=== PATIENT | female | born 1960 | race Caucasian/White ===

== ENCOUNTER 2023-09-02 06:19 | Day surgery (SDC) | payer OTHER, SELFPAY ==
[2023-09-02] VITALS (13 sets, daily range): BP systolic 100–135; BP diastolic 48–117; BMI 23.8
[2023-09-02] MEDS: NSS 500 IV (06:54)
--- NOTE | 2023-09-02 09:24 | ITS.CL.ABL ---
[employer] - Ablation
Ablation
Procedure Report:
Supra-Ventricular Tachycardia Ablation:
Ms. Mathis is a very pleasant�63 yr old woman with medical history significant for palpitations and was diagnosed with supra-ventricular tachycardia (SVT) with EKG showed short RP tachycardia. He presented today to the EP lab for electrophysiology
(EP) study of the heart and possible ablation of the SVT.
Date of Procedure:
09/02/2023
�
Indications: Supra-Ventricular Tachycardia (SVT)
�
Pre-Operative Diagnosis: Supra-Ventricular Tachycardia (SVT)
�
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
�
Procedure Performed: EP study and SVT ablation
�
Performing Physician:
Deepika Goldsmith MD
��
Anesthesia:
See anesthesia records
�
Detailed Description of the Procedure:
Written informed consent was obtained from the patient after a full explanation of the risks and benefits of the procedure including the risks of sedation and anesthesia. The patient was brought to the electrophysiology laboratory in stable
condition in fasting state. Continuous electrocardiographic and hemodynamic monitoring was initiated.
The initial rhythm was normal sinus.
The procedure site was meticulously prepared with surgical scrub and allowed to dry with no pooling. Sterile draping was applied to cover the procedure site. The image intensifier was draped with sterile bag and positioned over the patient.
Sheath and Catheter Placement:
After infusion of local anesthetic, vascular access was obtained under ultrasound guidance and sheaths were placed over guide wire as detailed below.
�
Sheaths:
- � � � 6 Fr sheath in right femoral vein
- � � � 6 Fr sheath in right femoral vein
- � � � 7 Fr sheath in right femoral vein �
- � � � 8 Fr that was later upgraded to Agilis sheath in right femoral vein
�
Catheters:
- � � � 6Fr - Jennifer Quad-cath at RVa
- � � � 6Fr � QRD Quad - cath at HIS
- � � � 6Fr - Jennifer Quad-cath at HRA
- � � � Bard Decapolar catheter - at locations of CS
- � � � [employer] Guerra EZ steer non-irrigated 4 mm ablation catheter
�
�Following the sheaths placement, patient was given Heparin bolus and EP study was done.
Baseline intervals (milliseconds):
PP interval (baseline cycle length): 610
P wave duration:126
CO interval:190
QRS duration: 87
QT interval: 430
�
AH interval: 102
His duration: 18
HV interval: 50
Q onset to RVa: 0
��
Sinus Node Function:
HRA pacing showed adequate threshold. The sinus node functions are within acceptable normal range.
�
Atrioventricular Jayant Function:
Atrial stimulation with incremental pacing intervals was performed from the high right atrium (HRA) and right ventricular apex (RVa) and antegrade and retrograde atrioventricular (AV) block cycle lengths were determined. The antegrade AV Wenckebach
was noted at 490 msec.
Programmed stimulation could not be done due to incessant SVT induced with minimal atrial stimulation.
There was transient AV block present at baseline before the start of any stimulation possibly due to HIS lead placement with baseline conduction disease evident with slow AVNRT.
The tachycardia was studied that showed CL of 520 msec and has simultaneous A and V signals.
V pacing and early HIS capture was able to break the tachycardia but was incessant and was going into SVT almost immediately. The decision was made to do full EP study after the ablation.
�
SVT Arrhythmia Induction:
Easily inducible SVT noted.
Tachycardia:
The tachycardia was studies with a cycle length of 520 msec. The tachycardia was concentric and had short VA time. The tachycardia was entrained from the ventricle and the proximal CS. The ventricle was out of the tachycardia cycle and attempt from
the entrainment from CS maneuver terminated the tachycardia. Following observations were noted. �
a)�Simultaneous A and V (Septal VA interval of <70 ms was at 28msec).�
b) Ventricular Overdrive pacing demonstrated a VAHV�response�
c) SA-VA >85 (151 � 20)
d) PPI-TCL >115msec (661-520= 141 msec)
e) HIS synchronous PVC dissociated the RV from the tachycardia
f) HIS synchronous PAC dissociated the RA from the tachycardia
j) The tachycardia was terminated with early PAC or PVC by engaging the AV node showing dependence on the AV node.
�
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
The tachycardia once induced was easily inducible by simply moving the catheter in the annulus area. The RV entrainment again confirmed the diagnosis of AVNRT.
Electroanatomic 3D Mapping (EAM) and Ablation:
Patient was given Heparin bolus. The HRA was removed and was upgraded to Agilis sheath for ablation catheter. EAM and radiofrequency ablation was performed using a non-irrigation, EZ steer 4 mm radiofrequency ablation catheter. 3D mapping was
performed with Carto Version 6 software. Cardiac anatomy as established. His cloud was established. The triangle of Suresh was marked with ablation catheter. There was a narrow area between the anterior border of the CS and the tricuspid annulus.
A slow pathway AVNRT ablation was pursued. Radiofrequency ablation lesions were applied to the anatomic slow pathway area targeting spike and dome electrograms with > 1:7 A:V ratio just below the His cloud. There were multitude of Junctional beats
with 1:1 VA relationship noted. There was no non-conducted beat.
Post Ablation EP study:
Programmed atrial stimulation was performed with drive train of 600 msec followed by a single atrial extra-stimulus and the AV jayant and the atrial ERPs were determined. The AV jayant ERP was 600/480 msec and the atrial ERP was <320msec.
There was normal decremental conduction noted through the AV node. The programmed stimuli showed no sign of AH jump anymore.
The AV jayant functions are deemed within sluggish with elevated AV node ERP indicative again of conduction disease, however, the AV conduction duration was normal with stable AH and HV of 102 and 50msec.
�
Ventricular Function:
Single ventricular extrastimuli showed V conduction was normal with below 500 msec ventricular conduction. The ventricular electrical functions are within acceptable range.
There was no sign of AV block noted.
No tachycardia was inducible now.
Procedure End
Following the completion of the EP study, catheters were removed. The sheaths were removed and hemostasis achieved with manual compression.
Recommendations:
��������� Likely discharge home today.
�
Estimated Blood loss:
<5 cc
�
Specimens Removed:
None.
�
Implants / Devices:
None
�
Urine output:
None
�
Packs / Drains/ Tubes:
None
�
Instrument / Sponge Count Correct:
Yes
�
Complications of the Procedure:
None
�
Condition of Patient at Time of Transfer:
Hemodynamically stable with no neurological or vascular compromise.
Summary:
Electrophysiology study with induction of atrioventricular jayant re-entrant tachycardia (AVNRT) and successful modification of slow pathway.
[2023-09-02] MEDS: TYLENOL 650 MG PO (09:40)
== END 2023-09-02 13:42 | disposition home or self-care (01) ==
LOC: CATH 06:19
PROVIDERS: ATTENDING PHYSICIAN Internal Medicine Cardiovascular Disease; FAMILY PHYSICIAN Family Medicine
DX: I47.20 Ventricular tachycardia, unspecified (principal); I47.19 Other supraventricular tachycardia
CPT/HCPCS: C1732; C1894; C1730; C1766; 76937; 93005; 93653

== ENCOUNTER → 2024-02-26 10:58 | Outpatient (REF) | payer OTHER, SELFPAY | LOC: HWRAD 10:58 | PROVIDERS: ATTENDING PHYSICIAN Family Medicine | DX: Z87.891 Personal history of nicotine dependence (principal); Z12.31 Encounter for screening mammogram for malignant neoplasm of breast | CPT/HCPCS: 71271; 77063; 77067 ==

== ENCOUNTER → 2025-01-11 10:04 | Outpatient (REF) | payer OTHER, SELFPAY | LOC: RAD 10:04 | PROVIDERS: ATTENDING PHYSICIAN Family Medicine | DX: R39.89 Other symptoms and signs involving the genitourinary system (principal) | CPT/HCPCS: 76770 ==

== ENCOUNTER → 2025-01-13 13:39 | Outpatient (REF) | payer OTHER, SELFPAY | LOC: RAD 13:39 | PROVIDERS: ATTENDING PHYSICIAN Family Medicine | DX: R10.30 Lower abdominal pain, unspecified (principal) | CPT/HCPCS: 74176 ==

== ENCOUNTER → 2025-03-15 20:02 | Outpatient (REF) | payer OTHER, SELFPAY | LOC: MRI 3T 20:02 | PROVIDERS: ATTENDING PHYSICIAN Family Medicine | DX: R10.2 Pelvic and perineal pain (principal) | CPT/HCPCS: 72197; A9575 ==

== ENCOUNTER → 2025-03-17 10:27 | Outpatient (REF) | payer OTHER, SELFPAY | LOC: HWWDC 10:27 | PROVIDERS: ATTENDING PHYSICIAN Family Medicine | DX: Z12.31 Encounter for screening mammogram for malignant neoplasm of breast (principal) | CPT/HCPCS: 77063; 77067 ==